=== PATIENT | male | born 1990 | race Caucasian/White ===

== ENCOUNTER 2024-07-19 01:03 | Emergency (ER) | payer OTHER ==
[~2024-07-19] VITALS: Ht 175.3 cm; Wt 100.0 kg
[2024-07-19 01:10] VITALS: O2SAT 98
[2024-07-19] MEDS ORDERED: BENZ100C86 MT (03:20)
[2024-07-19 03:54] VITALS: BP 138/68; PULSE 84; RESP 18; TEMP 37.00296; O2SAT 100
== END 2024-07-19 03:55 | disposition home or self-care (01) ==
LOC: ER 01:03
DX: J06.9 Acute upper respiratory infection, unspecified (principal); B97.89 Other viral agents as the cause of diseases classified elsewhere; J45.909 Unspecified asthma, uncomplicated
CPT/HCPCS: 71045; 99283